=== PATIENT | female | born 2000 | race American Indian/Alaskan Native ===

== ENCOUNTER 2019-01-15 18:03 | Emergency (ER) | payer OTHER ==
[2019-01-15 19:05] LABS: Hematocrit 32.7 % (30.3-42.9); Hemoglobin 11.1 gm/dl (10.1-14.3); Mean Corpuscular HGB Conc 34 % (30-34); Mean Corpuscular Volume 83 fl (79-97); Platelet Count 312 K/mm3 (140-440); Red Blood Count 3.92 M/mm3 (3.65-5.03); Red Cell Distribution Width 14.2 % (13.2-15.2)
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
[2019-01-15 19:25] LABS: Amorphous Crystals,Urine 1+; Bacteria,Urine 1+ /HPF (Negative); Bilirubin,Urine NEG (Negative); Blood,Urine NEG (Negative); Color,Urine Yellow (Yellow); Mucus,Urine 2+ /HPF; Protein,Urine <15 mg/dL mg/dL (Negative)
[2019-01-15] MEDS ORDERED: REGLAN IV ONE (19:25)
[2019-01-15] MEDS ORDERED: NACL 0.9% 1000 ML 1,000 ML IV ONE (19:25)
[2019-01-15 19:49] LABS: Alanine Aminotransferase 8 units/L (7-56); Albumin 3.7 g/dL (3.9-5); BUN/Creatinine Ratio 13; Blood Urea Nitrogen 5 mg/dL (7-17); Calcium 8.9 mg/dL (8.4-10.2); Hemolysis Index 7
[2019-01-15] MEDS ORDERED: TYLENOL PO ONE (20:05)
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
[2019-01-15] MEDS ORDERED: BENADRYL PO ONE (20:22)
[2019-01-15] MEDS ORDERED: ROCEPHIN/NS 1 GM/50 ML 1 GM/50 ML BAG IV ONE (20:22)
[2019-01-15 20:24] LABS: Bilirubin,Direct < 0.2 mg/dL (0-0.2)
[2019-01-15 21:19] VITALS: BP 116/76
== END 2019-01-15 21:23 | disposition home or self-care (01) ==
LOC: ED 18:03
DX: O23.42 Unspecified infection of urinary tract in pregnancy, second trimester (principal); M62.830 Muscle spasm of back; Z3A.16 16 weeks gestation of pregnancy
CPT/HCPCS: 36415; 76805; 80048; 80076; 81001; 83690; 84702; 85027; 96361; 96365; 96375; 99284; J0696; J2765; J7030

== ENCOUNTER 2021-04-28 04:10 | Emergency (ER) | payer OTHER ==
[2021-04-28 04:48] VITALS: BP 115/74
== END 2021-04-28 08:50 | disposition left against medical advice (07) ==
LOC: ED 04:10
DX: N81.4 Uterovaginal prolapse, unspecified (principal); Z53.21 Procedure and treatment not carried out due to patient leaving prior to being seen by health care provider